=== PATIENT | female | born 1950 | race Caucasian/White ===

== ENCOUNTER 2023-01-05 13:43 | Outpatient (OUT) | payer MEDICARE, SELFPAY ==
--- NOTE | 2023-01-05 13:44 | CA_ITS ---
Patient: DAVID JACKSON Exam Date: 01/05/2023 : 1950 Gender:F Ordering : DR SABI CARRASCO M.D. Admission #: [id number] Family : DR EMILY BANKS M.D. Order #: [id number] CLICK HERE TO VIEW EXAM ECHOCARDIOGRAM REPORT PROCEDURE: CA ECHO DOPPLER COMPLETE INDICATIONS: Coronary artery disease COMPARISON: None. DESCRIPTION: COMPLETE ECHOCARDIOGRAM Real-time transthoracic echocardiography with 2D, M-mode, spectral and color flow Doppler performed. QUALITY: Technical quality was good. LEFT VENTRICLE: Normal chamber size. Normal left ventricular wall thickness. Normal systolic function. LV EF: Normal left ventricular ejection fraction, (55-60%). DIASTOLIC: Normal diastolic function. ATRIAL SEPTUM: LEFT ATRIUM: Normal chamber size. RIGHT ATRIUM: Normal chamber size. RIGHT VENTRICLE: Normal chamber size. Normal right ventricular systolic function. TRICUSPID VALVE: Normal mobility and thickness. No stenosis with mild regurgitation. Mildly elevated right sided pressures. RVSP is 36 mmHg based on estimated RA pressure of 8 mmHg. MITRAL VALVE: Normal mobility and thickness. No evidence of mitral valve stenosis. There is no mitral annular calcification. Trivial mitral regurgitation. AORTIC VALVE: Normal trileaflet appearance. Thickened aortic valve. Normal leaflet mobility. No evidence of aortic valve stenosis. Mild aortic regurgitation. AORTIC ROOT: Normal diameter and appearance. PULMONIC VALVE: Normal thickness and mobility. No stenosis. Trivial regurgitation. PERICARDIUM: No evidence of pericardial effusion. IVC: Not well visualized. PLEURA: CONCLUSION: 1. Normal ventricular function. LVEF is 55 to 60%. 2. No significant valvular dysfunction. 3. Mildly elevated right-sided pressures. 4. No pericardial effusion. Adult Echocardiography Procedure Report Left Ventricle LVEDD (3.7 - 5.6 cm): 4.33 cm LVESD (2.2 - 4.0 cm): 2.88 cm LVIVS thickness (0.6 - 1.2 cm): 0.95 cm LVPW thickness (0.5 - 1.0 cm): 0.88 cm e': 0.10 m/s E - e': 6.12 LVOT Max Gradient: 5.71 mm[Hg] LVOT Area (cm2): 1.19 m/s Peak Velocity (LVOT): 1.19 m/s LVOT Diameter 1.89 cm Left Atrium LA Volume Index (2D A2C): 30.27 ml/m2 Left Atrium Systolic Dimension: 3.84 cm Mitral Valve MV E to A Ratio: 1.05 Mitral Valve A-Wave Peak Velocity: 0.60 m/s Mitral Valve E-Wave Peak Velocity: 0.63 m/s Right Ventricle Aorta AO Root Diam: 2.75 cm Ascending Ao Diam: 2.79 cm Aortic Valve AoV Area (Peak Klaus): 2.17 cm2, 2.17 cm2 Peak Velocity(Antegrade Flow): 1.54 m/s Peak Gradient(Antegrade Flow): 9.46 mm[Hg] Tricuspid Valve Peak Velocity (Regurgitant Flow): 2.65 m/s, 2.48 m/s Pulmonic Valve Mean Gradient: 3.29 mm[Hg] Mean Velocity: 0.86 m/s Peak Velocity: 1.17 m/s, 1.11 m/s Peak Gradient: 4.89 mm[Hg], 5.47 mm[Hg] Right Atrium Right Atrium Systolic Pressure: 23.28 ml, 18.39 ml, 28.17 ml Dictated by: Sabi Carrasco M.D. on 01/05/2023 at 19:08 Approved by: Sabi Carrasco M.D. on 01/05/2023 at 19:12
== END 2023-01-05 13:44 | disposition home or self-care (01) ==
LOC: CARD 13:43
PROVIDERS: PCP Internal Medicine; Visit Provider Internal Medicine Interventional Cardiology
DX: I25.10 Atherosclerotic heart disease of native coronary artery without angina pectoris (principal); Z95.5 Presence of coronary angioplasty implant and graft
CPT/HCPCS: 93306

== ENCOUNTER 2023-11-06 15:06 | Outpatient (OUT) | payer MEDICARE, SELFPAY | END 2023-11-06 15:07 | disposition home or self-care (01) | LOC: PST 15:07 | PROVIDERS: PCP Internal Medicine; Visit Provider Surgery | DX: Z01.818 Encounter for other preprocedural examination (principal); Z12.11 Encounter for screening for malignant neoplasm of colon ==

== ENCOUNTER 2023-11-13 06:25 | Day surgery (SDC) | payer MEDICARE, SELFPAY ==
--- OUTSIDE RECORDS SUMMARY | 2023-11-13 06:28 | XMS_ITS | CCD ---
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 Name Role Phone RUBI, DR CELESTIN Admitting Unavailable RUBI, DR CELESTIN Attending Unavailable JOCELYN, DR DIAZ Primary Care Unavailable RUBI, DR CELESTIN Consulting Unavailable JOCELYN, DR DIAZ Admitting Unavailable JOCELYN, DR DIAZ Attending Unavailable JOCELYN, DR DIAZ Primary Care Unavailable JOCELYN, DR DIAZ Consulting Unavailable ZIОЛЬГА, DR HYUN Gill Consulting Unavailable SABI CARRASCO Attending Unavailable EMILY BANKS Attending Unavailable ALBA TAMAYO Attending Unavailable EMILY BANKS Referring Unavailable EMILY BANKS Attending Unavailable Problems Problem Classification Problem Date Documented Date Episodic/Chronic Coronary atherosclerosis and other heart disease (6 sources) Atherosclerotic heart disease of [place] coronary artery without angina pectoris; Translations: [ASHD [place] W/O ANGINA PECTORIS] Onset: 11-10-2021 Chronic Coronary atherosclerosis and other heart disease (2 sources) Presence of coronary angioplasty implant and graft; Translations: [Presence of coronary angioplasty implant and graft] Onset: 12-13-2022 Episodic Disorders of lipid metabolism (2 sources) Mixed hyperlipidemia; Translations: [Mixed hyperlipidemia] Onset: 12-13-2022 Chronic Menopausal disorders (4 sources) Other primary ovarian failure; Translations: [OTHER PRIMARY OVARIAN FAILURE] Onset: 03-09-2022 Chronic Other bone disease and musculoskeletal deformities (1 source) Other specified disorders of bone density and structure, unspecified site; Translations: [OTH D/O BONE DEN STRUCT UNS SITE] Onset: 03-12-2022 Episodic Results Test Name Value Interpretation Reference Range Facil ity Office Visiton 12-13-2022 Follow-up visit [id number] David Jackson 1950 F Date Provider Department Center 12/13/2022 [facility] CARRAS[facility] CARD [facility] Family History Family history unknown: Yes Level of Service:12803 [place] OFFICE/OUTPATIENT ESTABLISHED LOW MDM 20-29 MIN Reason for Visit and Comments: Coronary Artery Disease [187] Hyperlipidemia [182] Normal [facility] XR DEXA BONE DENSITYon 03-09 XR DEXA BONE DENSITY EXAMINATION: XR DEXA BONE DENSITY, 03/09/2022 10:09 AM EDT HISTORY: Primary ovarian failure COMPARISON: DEXA bone densitometry 01/23/2020 TECHNIQUE: Dual-energy X-ray absorptiometry (DEXA) bone density study performed for the axial skeleton. FINDINGS: SPINE ANALYSIS: Average bone mineral density is 1.020 g/cm2. T-score (standard deviation relative to young adult mean): -1.3 . -2.6% change since prior study. HIP ANALYSIS: Lowest bone mineral density is within the femoral neck, 0.9-0 g/cm2. T-score (standard deviation relative to young adult mean): -0.8 . -0.6% change since prior study. IMPRESSION: [employer] Classification: Osteopenia - Moderate Fracture Risk Electronically authenticated by: HYUN SUBRAMANIAN Date: 2022-03-09 10:50 Normal [facility] CBC AUTO DIFFon 11-10-2021 BASO # 0.0 103/ul Normal 0.0-0.1 [facility] Comment on above: Performed By: #### C BC #### [facility] [address] [place] [address] Dr. Kervin Rosenbaum Basophils/100 WBC (Bld) 0.5 % Normal 0.2-2.0 [facility] Comment on above: Performed By: #### C BC #### [facility] [address] [place] [address] Dr. Kervin Rosenbaum EO # 0.1 103/ul Normal 0.0-0.7 [facility] Comment on above: Performed By: #### C BC #### [facility] [address] [address] [address] Kervin Rosenbaum Eosinophils/100 WBC (Bld) 2.3 % Normal 0.9-7.0 [facility] Comment on above: Performed By: #### C BC #### [facility] [address] [place] [address] Dr. Kervin Rosenbaum Erythrocyte distribution width (RBC) [Ratio] 12.3 % Normal 11.0-15.0 [facility] Comment on above: Performed By: #### C BC #### [facility] [address] [place] [address] Dr. Kervin Rosenbaum Hematocrit (Bld) [Volume fraction] 36.5 % Normal 36.0-48.0 [facility] Comment on above: Performed By: #### C BC #### [facility] [address] [place] [address] Dr. Kervin Rosenbaum Hemoglobin (Bld) [Mass/Vol] 12.0 g/dL Normal 12.0-16.0 [facility] Comment on above: Performed By: #### C BC #### [facility] [address] [place] [address] Dr. Kervin Rosenbaum IG # 0.01 10e3/ul Normal 0.00-0.03 [facility] Comment on above: Performed By: #### C BC #### [facility] [address] [place] [address] Dr. Kervin Rosenbaum IG % 0.2 % Normal 0.0-0.5 [facility] Comment on above: Performed By: #### C BC #### [facility] [address] [place] [address] Dr. Kervin Rosenbaum LYMPH # 2.1 103/ul Normal 1.2-3.8 [facility] Comment on above: Performed By: #### C BC #### [facility] [address] [place] [address] Dr. Kervin Rosenbaum Lymphocytes/100 WBC (Bld) 34.7 % Normal 20.5-60.0 [facility] Comment on above: Performed By: #### C BC #### [facility] [address] [place] [address] Dr. Kervin Rosenbaum MANUAL DIFF REQ NO Normal [facility] Comment on above: Performed By: #### C BC #### [facility] [address] [place] [address] Dr. Kervin Rosenbaum MCH (RBC) [Entitic mass] 32.4 pg Normal 26.7-34.0 [facility] Comment on above: Performed By: #### C BC #### [facility] [address] [address] [address] Kervin Rosenbaum MCHC (RBC) [Mass/Vol] 32.9 g/dL Normal 29.9-35.2 [facility] Comment on above: Performed By: #### C BC #### [facility] [address] [address] [address] Kervin Rosenbaum MCV (RBC) [Entitic vol] 98.6 fL Normal 81.0-99.0 [facility] Comment on above: Performed By: #### C BC #### [facility] [address] [place] [address] Dr. Kervin Rosenbaum MONO # 0.6 103/ul Normal 0.3-0.8 [facility] Comment on above: Performed By: #### C BC #### [facility] [address] [place] [address] Dr. Kervin Rosenbaum Monocytes/100 WBC (Bld) 9.4 % Normal 1.7-12.0 [facility] Comment on above: Performed By: #### C BC #### [facility] [address] [place] [address] Dr. Kervin Rosenbaum NEUT # 3.2 103/ul Normal 1.4-6.5 [facility] Comment on above: Performed By: #### C BC #### [facility] [address] [place] [address] Dr. Kervin Rosenbaum Neutrophils/100 WBC (Bld) 52.9 % Normal 43.0-75.0 [facility] Comment on above: Performed By: #### C BC #### [facility] [address] [address] [address] Kervin Rosenbaum Platelet mean volume (Bld) [Entitic vol] 9.6 fL Normal 9.5-13.5 [facility] Comment on above: Performed By: #### C BC #### [facility] [address] [address] [address] Kervin Rosenbaum PLT 228 103/ul Normal 150-450 [facility] Comment on above: Performed By: #### C BC #### [facility] [address] [address] [address] Kervin Rosenbaum RBC 3.70 106/ul Critically low 4.20-5.40 [facility] Comment on above: Performed By: #### C BC #### [facility] [address] [address] [address] Kervin Rosenbaum WBC 6.0 103/ul Normal 4.0-11.0 [facility] Comment on above: Performed By: #### C BC #### [facility] [address] [address] [address] Kervin Rosenbaum LIPID PROFILEon 11-10-2021 CHOL-HDL RATIO NORM SEE BELOW Normal [facility] Comment on above: Result Comment: 3.3 - 4.4 LOW RISK 4.4 - 7.1 AVERAGE RISK 7.1 - 11.0 MODERATE RISK >11.0 HIGH RISK Performed By: #### L IPID, CMP #### [facility] [address] [place] [address] Dr. Kervin Rosenbaum Cholesterol [Mass/Vol] 138 mg/dL Normal <=200 [facility] Comment on above: Performed By: #### L IPID, CMP #### [facility] [address] [place] [address] Dr. Kervin Rosenbaum Cholesterol in HDL [Mass/Vol] 55 mg/dL Normal 40-60 [facility] Comment on above: Performed By: #### L IPID, CMP #### [facility] [address] [address] [address] Kervin Rosenbaum Cholesterol in LDL [Mass/Vol] 64.0 mg/dL Normal [facility] Comment on above: Performed By: #### L IPID, CMP #### [facility] [address] [place] [address] Dr. Kervin Rosenbaum Cholesterol.total/ Cholesterol in HDL [Mass ratio] 2.5 {ratio} Normal [facility] Comment on above: Performed By: #### L IPID, CMP #### [facility] [address] [place] [address] Dr. Kervin Rosenbaum HDL NORMAL > or = 60 mg/dl - LOW CARDIOVASCULAR RISK <40 mg/dl - HIGH CARDIOVASCULAR RISK Normal [facility] Comment on above: Performed By: #### L IPID, CMP #### [facility] [address] [address] [address] Kervin Rosenbaum LDL CALC NORMAL SEE BELOW Normal [facility] Comment on above: Result Comment: <100 mg/dl OPTIMAL 100 - 129 mg/dl NEAR OR ABOVE OPTIMAL 130 - 159 mg/dl BORDERLINE HIGH 160 - 189 mg/dl HIGH >190 mg/dl VERY HIGH Performed By: #### L IPID, CMP #### [facility] [address] [address] [address] Kervin Rosenbaum Triglyceride [Mass/Vol] 95 mg/dL Normal <=150 [facility] Comment on above: Performed By: #### L IPID, CMP #### [facility] [address] [address] [address] Kervin Rosenbaum VLDL CALC 19.0 mg/dL Normal [facility] Comment on above: Performed By: #### L IPID, CMP #### [facility] [address] [address] [address] Kervin Rosenbaum PROF 14(COMP METB)on 022 Albumin [Mass/Vol] 3.9 g/dL Normal 3.4-5.0 [facility] Comment on above: Performed By: #### L IPID, CMP #### [facility] [address] [address] [address] Kervin Rosenbaum Albumin/Globulin [Mass ratio] 1.3 {ratio} Normal [facility] Comment on above: Performed By: #### L IPID, CMP #### [facility] [address] [address] [address] Kervin Rosenbaum ALP [Catalytic activity/Vol] 94 U/L Normal 46-116 [facility] Comment on above: Performed By: #### L IPID, CMP #### [facility] [address] [address] [address] Kervin Rosenbaum ALT [Catalytic activity/Vol] 28 U/L Normal 14-59 [facility] Comment on above: Performed By: #### L IPID, CMP #### [facility] [address] [address] [address] Kervin Rosenbaum Anion gap [Moles/Vol] 9.6 mmol/L Normal [facility] Comment on above: Performed By: #### L IPID, CMP #### [facility] [address] [address] [address] Kervin Rosenbaum AST [Catalytic activity/Vol] 18 U/L Normal 15-37 [facility] Comment on above: Performed By: #### L IPID, CMP #### [facility] [address] [address] [address] Kervin Rosenbaum Bilirubin [Mass/Vol] 0.8 mg/dL Normal 0.2-1.0 [facility] Comment on above: Performed By: #### L IPID, CMP #### [facility] [address] [address] [address] Kervin Rosenbaum Calcium [Mass/Vol] 8.9 mg/dL Normal 8.5-10.1 [facility] Comment on above: Performed By: #### L IPID, CMP #### [facility] [address] [address] [address] Kervin Rosenbaum Chloride [Moles/Vol] 106 mmol/L Normal 98-107 [facility] Comment on above: Performed By: #### L IPID, CMP #### [facility] [address] [address] [address] Kervin Rosenbaum CO2 [Moles/Vol] 28.9 mmol/L Normal 21.0-32.0 [facility] Comment on above: Performed By: #### L IPID, CMP #### [facility] [address] [address] [address] Kervin Rosenbaum Creatinine [Mass/Vol] 0.83 mg/dL Normal 0.55-1.02 [facility] Comment on above: Performed By: #### L IPID, CMP #### [facility] [address] [address] [address] Kervin Rosenbaum EGFR-AF SLOVAK >60 Normal >=60 [facility] Comment on above: Performed By: #### L IPID, CMP #### [facility] [address] [address] [address] Kervin Rosenbaum EGFR-NON AF SLOVAK >60 Normal >=60 [facility] Comment on above: Performed By: #### L IPID, CMP #### [facility] [address] [address] [address] Kervin Rosenbaum Globulin (S) [Mass/Vol] 3.0 g/dL Normal [facility] Comment on above: Performed By: #### L IPID, CMP #### [facility] [address] [address] [address] Kervin Rosenbaum Glucose [Mass/Vol] 109 mg/dL Critically high 74-106 [facility] Comment on above: Performed By: #### L IPID, CMP #### [facility] [address] [address] [address] Kervin Rosenbaum Potassium [Moles/Vol] 4.5 mmol/L Normal 3.5-5.1 [facility] Comment on above: Performed By: #### L IPID, CMP #### [facility] [address] [address] [address] Kervin Rosenbaum Protein [Mass/Vol] 6.9 g/dL Normal 6.4-8.2 [facility] Comment on above: Performed By: #### L IPID, CMP #### [facility] [address] [address] [address] Kervin Rosenbaum Sodium [Moles/Vol] 140 mmol/L Normal 136-145 [facility] Comment on above: Performed By: #### L IPID, CMP #### [facility] [address] [address] [address] Kervin Rosenbaum Urea nitrogen [Mass/Vol] 21.0 mg/dL Critically high 7.0-18.0 [facility] Comment on above: Performed By: #### L IPID, CMP #### [facility] [address] [address] [address] Kervin Rosenbaum Urea nitrogen/Creatinin e [Mass ratio] 25.3 mg/mg Normal [facility] Comment on above: Performed By: #### L IPID, CMP #### [facility] [address] [address] [address] Kervin Rosenbaum Encounters Encounter Date Encounter Type Care Provider Facility Start: 10-31-2023 End: 10-31-2023 ambulatory EMILY BANKS Not Available Start: 10-29-2023 End: 10-29-2023 ambulatory ALBA TAMAYO Not Available Start: 10-22-2023 End: 10-22-2023 ambulatory EMILY BANKS Not Available Start: 12-13-2022 End: 12-13-2022 ambulatory SABI CENTERVILLEJORGE [facility] Start: 03-09-2022 End: 03-10-[address] EMILY BANKS Facility:[facility] Start: 11-10-2021 End: 11-11-[address] SABI CARRASCO Facility:[facility] Payers Date Payer Category Payer Private Health Insurance [id number] 1959 Medicare [id number] 1959 Private Health Insurance CLI [id number] 1950 Unknown [id number] [id number] [id number] 1950 Unknown [id number] [id number] [id number] 1950 Unknown [id number] [id number] [id number] 1950 Unknown [id number] 2.16.84 [id number] 1950 Unknown [id number] [id number] [id number] Progress note 12-13-2022 Note Date & Type Note Facility 12-13-2022 Note [facility] Olivier Jackson is a 72 y.o. year old female patient being seen for 1 year follow Coronary Artery Disease and Hyperlipidemia Patient Active Problem List Diagnosis Coronary artery disease involving tazlina coronary artery of t[place] heart without angina pectoris Mixed hyperlipidemia Status post insertion of drug eluting coronary artery stent Family History Family history unknown: Yes SARITA Olguin is seen in follow-up. She is a 72-year-old woman with prior medical history of: 1. Coronary artery disease status post stenting of the LAD and RCA in the past (2005) in the setting of symptoms and nonsustained ventricular tachycardia. A cardiac catheterization in 2009 in the setting of symptoms and abnormal stress test showed patent stents with a 40% proximal LAD stenosis. 2. Hyperlipidemia She is currently maintained on aspirin 81 mg daily, atorvastatin 40 mg daily, metoprolol succinate 50 mg daily. She has been doing well with no symptoms of angina or heart failure symptoms. No recurrence palpitations. No lower extremity edema. No claudication. She has good exercise tolerance. Review of Systems All other systems reviewed and are negative. Objective Visit Vitals BP 124/77 (BP Location: Left arm, Patient Position: Sitting, BP Cuff Size: Adult) Pulse 55 Wt 67.6 kg (149 lb) SpO2 99% BMI 25.58 kg/m??? BSA 1.75 m??? Physical Exam Constitutional: Appearance: She is well-developed. She is not ill-appearing. HENT: Head: Normocephalic and atraumatic. Nose: Nose normal. Eyes: General: No scleral icterus. Pupils: Pupils are equal, round, and reactive to light. Neck: Thyroid: No thyromegaly. Vascular: No JVD. Cardiovascular: Rate and Rhythm: Normal rate and regular rhythm. Pulses: Radial pulses are 2+ on the right side and 2+ on the left side. Heart sounds: Normal heart sounds. No murmur heard. No friction rub. No gallop. Pulmonary: Effort: Pulmonary effort is normal. No respiratory distress. Breath sounds: Normal breath sounds. No wheezing or rales. Chest: Chest wall: No tenderness. Abdominal: General: Bowel sounds are normal. There is no distension. Palpations: Abdomen is soft. Tenderness: There is no abdominal tenderness. Musculoskeletal: General: No swelling. Cervical back: Neck supple. Skin: General: Skin is warm and dry. Neurological: General: No focal deficit present. Mental Status: She is alert and oriented to person, place, and time. Psychiatric: Mood and Affect: Mood normal. Behavior: Behavior is cooperative. Judgment: Judgment normal. Allergies No Known Allergies Medications Current Outpatient Medications: aspirin 81 mg EC tablet, in the morning., Disp: , Rfl: atorvastatin (Lipitor) 40 mg tablet, Take 40 mg by mouth in the morning., Disp: , Rfl: metoprolol succinate XL (Toprol-XL) 50 mg 24 hr tablet, Take 1 tablet (50 mg) by mouth in the morning., Disp: 90 tablet, Rfl: 3 Recent Labs No visits with results within 6 Month(s) from this visit. Latest known visit with results is: No results found for any previous visit. Blood testing 11/10/2021: Hemoglobin 12, platelets 228, potassium 4.5, BUN 21, creatinine 0.83, EGFR more than 60, LFTs normal, cholesterol 138, HDL 55, triglycerides 95, LDL 64. Blood testing 12/06/2020: Hemoglobin 12.3, platelets 284, BUN 18, creatinine 0.8, potassium 4.9, LFTs normal. Cholesterol 139, triglycerides 87, HDL 46, LDL 76. Blood testing 11/20/2019: Cholesterol 129, HDL 56, triglycerides 68, LDL 59. LFTs normal. Blood testing 11/11/2018: Liver panel normal, cholesterol 137, triglycerides 111, HDL 47, LDL 68. Imaging and other tests Prior testing: ECG 09/21/2020: Normal sinus rhythm. Cardiac catheterization 04/14/2010: 1. Patent left anterior descending and right coronary artery stents. 2. 40% proximal left anterior descending coronary artery stenosis. 3. 55% ejection fraction. Assessment/Plan Diagnoses and all orders for this visit: Coronary artery disease involving tazl[place] coronary artery of t[place] heart without angina pectoris - Transthoracic echo (TTE) complete; Future Mixed hyperlipidemia Status post insertion of drug eluting coronary artery stent - Transthoracic echo (TTE) complete; Future Overall she is doing well with no angina and no heart failure symptoms. She has good exercise tolerance. Her blood pressure and heart rate are controlled. Her lipid profile 10/2021 showed adequate control on the current statin therapy. She previously had palpitations in August 2020, there is no recurrence. I will check an echocardiogram. I will see her in follow-up in 1 year. Follow up in about 1 year (around 12/14/2023). Sabi Carrasco MD [facility] Summary Purpose Family History No Family History Records FoundNo Family History Records FoundNo Family History Records Found Advance Directives No Advanced Directives Records FoundNo Advanced Directives Records FoundNo Advanced Directives Records Found Additional Source Comments INFORMATION SOURCE (unrecogn ized section and content) DATE CREATED AUTHOR 03/12/2022 [facility] DATE CREATED AUTHOR AUTHOR'S ORGANIZ ATION 12/14/2022 [facility] DATE CREATED AUTHOR AUTHOR'S ORGANIZ ATION 11/01/2023 [facility] EPIC FOR RECORDS PERTAINING TO PATIENTS WHO ARE OR HAVE BEEN ENROLLED IN A CHEMICAL DEPENDENCY/SUBSTANCEABUSE PROGRAM, SOME INFORMATION MAY BE OMITTED. This clinical summary was aggregated from multiple sources. Caution should be exercised in using it in the provision of clinical care. This summary normalizes information from multiple sources, and as a consequence, information in this document may materially change the coding, format and clinical context of patient data. In addition, data may be omitted in some cases. CLINICAL DECISIONS SHOULD BE BASED ON THE PRIMARY CLINICAL RECORDS. [facility]. provides no warranty or guarantee of the accuracy or completeness of information in this document.
[2023-11-13 06:34] VITALS: BP 135/68; PULSE 59; TEMP 36.1; O2SAT 100; BMI 25.6
[2023-11-13] MEDS: LACTATED RINGER'S SOLUTION 1,000 ML 50 ML IV (06:52)
[2023-11-13 07:55] VITALS: BP 141/65; PULSE 55; TEMP 36.3; O2SAT 98
[2023-11-13 08:10] VITALS: BP 130/58; PULSE 60; O2SAT 98
[2023-11-13 08:25] VITALS: BP 131/59; PULSE 62; O2SAT 98
--- NOTE | 2023-11-13 08:31 | W.PM.PROCNOT ---
Date of procedure: 11/13/23 Pre-op diagnosis: screening colonoscopy Post-op diagnosis: same as pre-op Procedure: Previous colonoscopy: procedure: screening colonoscopy The patient was given IV conscious sedation.? The patient's SPO2 remained above 90% throughout the procedure. The colonoscope was inserted per rectum and advanced under direct vision to the cecum without difficulty.? The prep was good.? Findings: Terminal ileum os: normal Cecum/Ascending colon: normal Transverse colon: normal Descending/Sigmoid colon: normal Rectum/Anus: examined in normal and retroflexed positions and was normal Withdrawal Time was (minutes): 8 The colon was decompressed and the scope was removed.? The patient tolerated the procedure well. Recommendations/Plan: 1.? Lifestyle and dietary modifications as discussed 2.? F/U in 10 years for repeat c-scope 3.? Discussed with the family Anesthesia: MAC Surgeon: Samson Huerta Estimated blood loss (mL): 0 Pathology: none sent Condition: stable Disposition: PACU
== END 2023-11-13 08:25 | disposition home or self-care (01) ==
PROVIDERS: PCP Internal Medicine; Visit Provider Surgery
PROC: (CPT G0121; principal; 2023-11-13 07:30)
DX: Z12.11 Encounter for screening for malignant neoplasm of colon (principal); Z79.82 Long term (current) use of aspirin; I25.10 Atherosclerotic heart disease of native coronary artery without angina pectoris; E78.5 Hyperlipidemia, unspecified; Z95.5 Presence of coronary angioplasty implant and graft; Z79.899 Other long term (current) drug therapy
CPT/HCPCS: G0121; J2704

== ENCOUNTER 2024-01-24 07:20 | Outpatient (OUT) | payer MEDICARE, SELFPAY ==
--- OUTSIDE RECORDS SUMMARY | 2024-01-24 07:24 | XMS_ITS | CCD ---
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 Name Role Phone RUBI, DR CELESTIN Admitting Unavailable RUBI, DR CELESTIN Attending Unavailable JOCELYN, DR DIAZ Primary Care Unavailable RUBI, DR CELESTIN Consulting Unavailable JOCELYN, DR DIAZ Admitting Unavailable JOCELYN, DR DIAZ Attending Unavailable JOCELYN, DR DIAZ Primary Care Unavailable JOCELYN, DR DIAZ Consulting Unavailable MORIS, DR HYUN Gill Consulting Unavailable EMILY BANKS Attending ALBA Jamison Attending Unavailable EMILY BANKS Referring Unavailable EMILY BANKS Attending Unavailable [facility] Attending Unavailable SABI VENEGAS Attending Unavailable Problems Problem Classification Problem Date Documented Date Episodic/Chronic Coronary atherosclerosis and other heart disease (6 sources) Atherosclerotic heart disease of [place] coronary artery without angina pectoris; Translations: [ASHD [place] W/O ANGINA PECTORIS] Onset: 11-10-2021 Chronic [...] Interpretation Reference Range Facil ity Office Visiton 01-18-2024 Follow-up visit [id number] David Jackson 1950 F Date Provider [facility] History Family history unknown: Yes Level of Service:21654 [place] OFFICE/OUTPATIENT ESTABLISHED LOW MDM 20 MIN Normal [facility] XR DEXA BONE DENSITYon 03-09 XR DEXA [...] HYUN SUBRAMANIAN Date: 2022-03-09 10:50 Normal [facility] CBC AUTO DIFFon 11-10-2021 BASO # 0.0 103/ul Normal 0.0-0.1 [facility] Comment on above: Performed By: #### C BC #### [facility] [address] [place] [address] Dr. Kervin Rosenbaum Basophils/100 WBC (Bld) 0.5 % Normal 0.2-2.0 [facility] Comment on above: Performed By: #### C BC #### [facility] [address] [place] [address] Dr. Kervin Rosenbaum EO # 0.1 103/ul Normal 0.0-0.7 [facility] Comment on above: Performed By: #### C BC #### [facility] [address] [place] [address] Dr. Kervin Rosenbaum Eosinophils/100 WBC (Bld) 2.3 % Normal 0.9-7.0 [facility] Comment on above: Performed By: #### C BC #### [facility] [address] [place] [address] Dr. Kervin Rosenbaum Erythrocyte distribution width (RBC) [Ratio] 12.3 % Normal 11.0-15.0 [facility] Comment on above: Performed By: #### C BC #### [facility] [address] [place] [address] Dr. Kervin Rosenbaum Hematocrit (Bld) [Volume fraction] 36.5 % Normal 36.0-48.0 [facility] Comment on above: Performed By: #### C BC #### [facility] [address] [place] [address] Dr. Kervin Rosenbaum Hemoglobin (Bld) [Mass/Vol] 12.0 g/dL Normal 12.0-16.0 [facility] Comment on above: Performed By: #### C BC #### [facility] [address] [place] [address] Dr. Kervin Rosenbaum IG # 0.01 10e3/ul Normal 0.00-0.03 [facility] Comment on above: Performed By: #### C BC #### [facility] [address] [place] [address] Dr. Kervin Rosenbaum IG % 0.2 % Normal 0.0-0.5 [facility] Comment on above: Performed By: #### C BC #### [facility] [address] [place] [address] Dr. Kervin Rosenbaum LYMPH # 2.1 103/ul Normal 1.2-3.8 [facility] Comment on above: Performed By: #### C BC #### [facility] [address] [place] [address] Dr. Kervin Rosenbaum Lymphocytes/100 WBC (Bld) 34.7 % Normal 20.5-60.0 [facility] Comment on above: Performed By: #### C BC #### [facility] [address] [place] [address] Dr. Kervin Rosenbaum MANUAL DIFF REQ NO Normal [facility] Comment on above: Performed By: #### C BC #### [facility] [address] [place] [address] Dr. Kervin Rosenbaum MCH (RBC) [Entitic mass] 32.4 pg Normal 26.7-34.0 [facility] Comment on above: Performed By: #### C BC #### [facility] [address] [address] [address] Kervin Rosenbaum MCHC (RBC) [Mass/Vol] 32.9 g/dL Normal 29.9-35.2 [facility] Comment on above: Performed By: #### C BC #### [facility] [address] [address] [address] Kervin Rosenbaum MCV (RBC) [Entitic vol] 98.6 fL Normal 81.0-99.0 [facility] Comment on above: Performed By: #### C BC #### [facility] [address] [place] [address] Dr. Kervin Rosenbaum MONO # 0.6 103/ul Normal 0.3-0.8 [facility] Comment on above: Performed By: #### C BC #### [facility] [address] [place] [address] Dr. Kervin Rosenbaum Monocytes/100 WBC (Bld) 9.4 % Normal 1.7-12.0 [facility] Comment on above: Performed By: #### C BC #### [facility] [address] [place] [address] Dr. Kervin Rosenbaum NEUT # 3.2 103/ul Normal 1.4-6.5 [facility] Comment on above: Performed By: #### C BC #### [facility] [address] [place] [address] Dr. Kervin Rosenbaum Neutrophils/100 WBC (Bld) 52.9 % Normal 43.0-75.0 [facility] Comment on above: Performed By: #### C BC #### [facility] [address] [place] [address] Dr. Kervin Rosenbaum Platelet mean volume (Bld) [Entitic vol] 9.6 fL Normal 9.5-13.5 [facility] Comment on above: Performed By: #### C BC #### [facility] [address] [place] [address] Dr. Kervin Rosenbaum PLT 228 103/ul Normal 150-450 [facility] Comment on above: Performed By: #### C BC #### [facility] [address] [address] [address] Kervin Rosenbaum RBC 3.70 106/ul Critically low 4.20-5.40 [facility] Comment on above: Performed By: #### C BC #### [facility] [address] [address] [address] Kervin Rosenbaum WBC 6.0 103/ul Normal 4.0-11.0 [facility] Comment on above: Performed By: #### C BC #### [facility] [address] [address] [address] Kervin Rosenbaum LIPID PROFILEon 11-10-2021 CHOL-HDL RATIO NORM SEE BELOW Normal [facility] Comment on above: Result Comment: 3.3 - 4.4 LOW RISK 4.4 - 7.1 AVERAGE RISK 7.1 - 11.0 MODERATE RISK >11.0 HIGH RISK Performed By: #### L IPID, CMP #### [facility] [address] [place] [address] Dr. Kervin Rosenbaum Cholesterol [Mass/Vol] 138 mg/dL Normal <=200 [facility] Comment on above: Performed By: #### L IPID, CMP #### [facility] [address] [place] [address] Dr. Kervin Rosenbaum Cholesterol in HDL [Mass/Vol] 55 mg/dL Normal 40-60 [facility] Comment on above: Performed By: #### L IPID, CMP #### [facility] [address] [address] [address] Kervin Rosenbaum Cholesterol in LDL [Mass/Vol] 64.0 mg/dL Normal [facility] Comment on above: Performed By: #### L IPID, CMP #### [facility] [address] [place] [address] Dr. Kervin Rosenbaum Cholesterol.total/ Cholesterol in HDL [Mass ratio] 2.5 {ratio} Normal [facility] Comment on above: Performed By: #### L IPID, CMP #### [facility] [address] [place] [address] Dr. Kervin Rosenbaum HDL NORMAL > or = 60 mg/dl - LOW CARDIOVASCULAR RISK <40 mg/dl - HIGH CARDIOVASCULAR RISK Normal [facility] Comment on above: Performed By: #### L IPID, CMP #### [facility] [address] [address] [address] Kervin Rosenbaum LDL CALC NORMAL SEE BELOW Normal [facility] Comment on above: Result Comment: <100 mg/dl OPTIMAL 100 - 129 mg/dl NEAR OR ABOVE OPTIMAL 130 - 159 mg/dl BORDERLINE HIGH 160 - 189 mg/dl HIGH >190 mg/dl VERY HIGH Performed By: #### L IPID, CMP #### [facility] [address] [address] [address] Kervin Rosenbaum Triglyceride [Mass/Vol] 95 mg/dL Normal <=150 [facility] Comment on above: Performed By: #### L IPID, CMP #### [facility] [address] [address] [address] Kervin Rosenbaum VLDL CALC 19.0 mg/dL Normal [facility] Comment on above: Performed By: #### L IPID, CMP #### [facility] [address] [address] [address] Kervin Rosenbaum PROF 14(COMP METB)on 022 Albumin [Mass/Vol] 3.9 g/dL Normal 3.4-5.0 [facility] Comment on above: Performed By: #### L IPID, CMP #### [facility] [address] [address] [address] Kervin Rosenbaum Albumin/Globulin [Mass ratio] 1.3 {ratio} Normal [facility] Comment on above: Performed By: #### L IPID, CMP #### [facility] [address] [address] [address] Kervin Rosenbaum ALP [Catalytic activity/Vol] 94 U/L Normal 46-116 [facility] Comment on above: Performed By: #### L IPID, CMP #### [facility] [address] [address] [address] Kervin Rosenbaum ALT [Catalytic activity/Vol] 28 U/L Normal 14-59 [facility] Comment on above: Performed By: #### L IPID, CMP #### [facility] [address] [address] [address] Kervin Rosenbaum Anion gap [Moles/Vol] 9.6 mmol/L Normal [facility] Comment on above: Performed By: #### L IPID, CMP #### [facility] [address] [address] [address] Kervin Rosenbaum AST [Catalytic activity/Vol] 18 U/L Normal 15-37 [facility] Comment on above: Performed By: #### L IPID, CMP #### [facility] [address] [address] [address] Kervin Rosenbaum Bilirubin [Mass/Vol] 0.8 mg/dL Normal 0.2-1.0 [facility] Comment on above: Performed By: #### L IPID, CMP #### [facility] [address] [place] [address] Dr. Kervin Rosenbaum Calcium [Mass/Vol] 8.9 mg/dL Normal 8.5-10.1 [facility] Comment on above: Performed By: #### L IPID, CMP #### [facility] [address] [address] [address] Kervin Rosenbaum Chloride [Moles/Vol] 106 mmol/L Normal 98-107 [facility] Comment on above: Performed By: #### L IPID, CMP #### [facility] [address] [address] [address] Kervin Rosenbaum CO2 [Moles/Vol] 28.9 mmol/L Normal 21.0-32.0 [facility] Comment on above: Performed By: #### L IPID, CMP #### [facility] [address] [address] [address] Kervin Rosenbaum Creatinine [Mass/Vol] 0.83 mg/dL Normal 0.55-1.02 [facility] Comment on above: Performed By: #### L IPID, CMP #### [facility] [address] [address] [address] Kervin Rosenbaum EGFR-AF LUXEMBOURGER >60 Normal >=60 [facility] Comment on above: Performed By: #### L IPID, CMP #### [facility] [address] [address] [address] Kervin Rosenbaum EGFR-NON AF LUXEMBOURGER >60 Normal >=60 [facility] Comment on above: Performed By: #### L IPID, CMP #### [facility] [address] [address] [address] Kervin Rosenbaum Globulin (S) [Mass/Vol] 3.0 g/dL Normal [facility] Comment on above: Performed By: #### L IPID, CMP #### [facility] [address] [address] [address] Kervin Rosenbaum Glucose [Mass/Vol] 109 mg/dL Critically high 74-106 [facility] Comment on above: Performed By: #### L IPID, CMP #### [facility] [address] [address] [address] Kervin Rosenbaum Potassium [Moles/Vol] 4.5 mmol/L Normal 3.5-5.1 [facility] Comment on above: Performed By: #### L IPID, CMP #### [facility] [address] [address] [address] Kervin Rosenbaum Protein [Mass/Vol] 6.9 g/dL Normal 6.4-8.2 [facility] Comment on above: Performed By: #### L IPID, CMP #### [facility] [address] [address] [address] Kervin Rosenbaum Sodium [Moles/Vol] 140 mmol/L Normal 136-145 [facility] Comment on above: Performed By: #### L IPID, CMP #### [facility] [address] [address] [address] Kervin Rosenbaum Urea nitrogen [Mass/Vol] 21.0 mg/dL Critically high 7.0-18.0 [facility] Comment on above: Performed By: #### L IPID, CMP #### [facility] [address] [address] [address] Kervin Rosenbaum Urea nitrogen/Creatinin e [Mass ratio] 25.3 mg/mg Normal [facility] Comment on above: Performed By: #### L IPID, CMP #### [facility] [address] [address] [address] Kervin Rosenbaum Encounters Encounter Date Encounter Type Care Provider Facility Start: 01-18-2024 ambulatory SABI VENEGAS [facility] Start: 12-10-2023 End: 12-10-2023 ambulatory [facility] Not Available Start: 10-31-2023 End: 10-31-2023 ambulatory EMILY BANKS Not Available Start: 10-29-2023 End: 10-29-2023 ambulatory ALBA TAMAYO Not Available Start: 10-22-2023 End: 10-22-2023 ambulatory EMILY BANKS Not Available Start: 03-09-2022 End: 03-10-[address] EMILY BANKS Facility:[facility] Start: 11-10-2021 End: 11-11-[address] SABI VENEGAS Facility:[facility] Payers Date Payer Category Payer Unknown [id number] 1959 Medicare [id number] 1959 Private Health Insurance CLI [id number] 1950 Unknown [id number] 2.16.84 [id number] 1950 Unknown [id number] 2.16.84 [id number] 1950 Unknown [id number] 2.16.84 [id number] 1950 Unknown [id number] 2.16.84 [id number] 1950 Unknown [id number] 2.16.84 [id number] 1950 Unknown [id number] 2.16.84 [id number] Progress note 01-18-2024 Note Date & Type Note Facility 01-18-2024 Note [facility] Subjective David J Les is a 73 y.o. year old female patient being seen for 1 year follow up CAD and hyperlipidemia. Had routine echo last December after apt. She had labs in October 2023, but no lipid panel. Denies chest pain, SOB, palpitations, and lightheadedness/syncope. Patient Active Problem List Diagnosis Coronary artery disease involving [place] coronary artery of [place] heart without angina pectoris Mixed hyperlipidemia Status post insertion of drug eluting coronary artery stent Cramps of lower extremity Decreased estrogen level Disorder of lipid metabolism Elevated ALT measurement Impaired fasting glucose Malaise and fatigue Pityriasis rosea Right sided sciatica Family History Family history unknown: Yes SARITA Olguin is seen in follow-up. She is a 73-year-old woman with prior medical history of: 1. [...] and are negative. Objective Visit Vitals BP 132/70 (BP Location: Left arm, Patient Position: Sitting) Pulse 53 Ht 1.626 m (5' 4 ) Wt 66.7 kg (147 lb) SpO2 99% BMI 25.23 kg/m??? BSA 1.74 m??? Physical Exam Constitutional: Appearance: She is [...] , Rfl: atorvastatin (Lipitor) 40 mg tablet, TAKE 1 TABLET BY MOUTH EVERY DAY, Disp: 90 tablet, Rfl: 3 metoprolol succinate XL (Toprol-XL) 50 mg 24 hr tablet, take 1 tablet by mouth every morning, Disp: 90 tablet, Rfl: 3 Recent Labs Blood testing 10/24/2023: Hb 11.8, platelets 277, BUN 20, Cr 0.68, K 4.8. Blood testing 11/10/2021: Hemoglobin 12, platelets 228, [...] 47, LDL 68. Imaging and other tests Echocardiogram 01/05/2023: Normal ventricular function. LVEF is 55 to 60%. No significant valvular dysfunction. Mildly elevated right-sided pressures. No pericardial effusion. Prior testing: ECG 09/21/2020: Normal sinus rhythm. Cardiac catheterization 04/14/2010: 1. Patent left anterior descending and right coronary artery stents. 2. 40% proximal left anterior descending coronary artery stenosis. 3. 55% ejection fraction. Assessment/Plan Diagnoses and all orders for this visit: Coronary artery disease involving [place] coronary artery of [place] heart without angina pectoris Mixed hyperlipidemia - Lipid panel; Future Status post insertion of drug eluting coronary artery stent Overall she is doing well with no angina and no heart failure symptoms. She has good exercise tolerance. Her blood pressure and heart rate are controlled. Her lipid profile 10/2021 showed adequate control on the current statin therapy. She previously had (more content not included)... [facility] Summary Purpose Family History No Family History Records FoundNo Family History Records FoundNo Family History Records Found Advance Directives No Advanced Directives Records FoundNo Advanced Directives Records FoundNo Advanced Directives Records Found Additional Source Comments INFORMATION SOURCE (unrecogn ized section and content) DATE CREATED AUTHOR 03/12/2022 [facility] DATE CREATED AUTHOR AUTHOR'S ORGANIZ ATION 12/10/2023 [facility] EPIC DATE CREATED AUTHOR AUTHOR'S ORGANIZ ATION 01/22/2024 [facility] FOR RECORDS PERTAINING TO PATIENTS WHO ARE [...] BE BASED ON THE PRIMARY CLINICAL RECORDS. [employer] provides no warranty or guarantee of the accuracy or completeness of information in this document.
[2024-01-24 09:20] LABS: Chol HDL Ratio 2.4; Cholesterol 131 mg/dL (<=200); HDL Cholesterol 54 mg/dL (40-60); Triglycerides 90 mg/dL (<=150)
== END 2024-01-24 07:21 | disposition home or self-care (01) ==
LOC: LAB 07:22
PROVIDERS: PCP Internal Medicine; Visit Provider Internal Medicine Interventional Cardiology
DX: E78.2 Mixed hyperlipidemia (principal)
CPT/HCPCS: 36415; 80061

== ENCOUNTER 2024-03-11 07:48 | Outpatient (OUT) | payer MEDICARE, SELFPAY ==
--- NOTE | 2024-03-11 07:53 | XR_ITS ---
[address] [address] Patient Name: DAVID JACKSON MRN: [id number] date: 1950 Sex: F Assigned Patient Location: [facility] Current Patient Location: [facility] Accession/Order Number: [id number] Exam Date: 03/11/2024 08:00 Report Date: 03/11/2024 12:47 At the request of: [facility] Procedure: XR DEXA axial skeleton EXAMINATION: XR DEXA axial skeleton HISTORY: Estrogen Deficiency E28.39 COMPARISON: DEXA bone densitometry 03/09/2022 TECHNIQUE: Dual-energy X-ray absorptiometry (DXA) was performed. FINDINGS: SPINE ANALYSIS: Average bone mineral density is 1.025 g/cm2. T-score (standard deviation relative to young adult mean): -1.3 . +0.5% change since prior study. HIP ANALYSIS: Lowest bone mineral density is within the right femoral neck, 0.904 g/cm2. T-score (standard deviation relative to young adult mean): -1.0 . +0.7% change since prior study. XR/XR DEXA axial skeleton IMPRESSION: World Health Organization Classification: Osteopenia - Moderate Fracture Risk FRAX: Cannot be calculated. Pharmacologic treatment recommendations * No uniform recommendation applies to all patients. Management plans must be individualized. * Consider initiating pharmacologic treatment in postmenopausal women and men >= 50 years of age who have the following: Primary fracture prevention: * T-score <= - 2.5 at the femoral neck, total hip, lumbar spine, 33% radius (some uncertainty with existing data) by DXA. * Low bone mass (osteopenia: T-score between - 1.0 and - 2.5) at the femoral neck or total hip by DXA with a 10-year hip fracture risk >= 3% or a 10-year major osteoporosis-related fracture risk >= 20% (i.e., clinical vertebral, hip, forearm, or proximal humerus) based on the [place]-adapted FRAXregistered model. Secondary fracture prevention: * Fracture of the hip or vertebra regardless of BMD [4, 5]. * Fracture of proximal humerus, pelvis, or distal forearm in persons with low bone mass (osteopenia: T-score between - 1.0 and - 2.5). The decision to treat should be individualized in persons with a fracture of the proximal humerus, pelvis, or distal forearm who do not have osteopenia or low BMD [12, 13]. Daisy MS, Emilee SL, Obdulia KL, Alexander EM, Yulissa KG, AJ, Romel ES. The clinician's guide to prevention and treatment of osteoporosis. Osteoporos Int. 2021;33(10):2048-2588. doi: 10.1007/l69853-220-85319-f. Epub 2021Oct 27. Erratum in: Osteoporos Int. 2021Jan 26;: PMID: [id number]; PMCID: [id number]. Electronically authenticated by: HYUN SUBRAMANIAN Date: 03/11/2024 12:47
--- OUTSIDE RECORDS SUMMARY | 2024-03-11 07:54 | XMS_ITS | CCD ---
Author Organization [facility] Care Team Providers Care Nuclear Criticality Safety Engineer Name Role Phone RUBI, DR CELESTIN Admitting [...] disease (6 sources) Atherosclerotic heart disease of [place] coronary artery without angina pectoris; Translations: [ASHD KAIBAB CA W/O ANGINA PECTORIS] Onset: 11-10-2021 Chronic [...] Facil ity Office Visiton 01-18-2024 Follow-up visit [id number] David Jackson 1950 F Date [facility] History Family history unknown: Yes Level of Service:83822 [place] OFFICE/OUTPATIENT ESTABLISHED LOW MDM 20 MIN Normal [facility] XR DEXA BONE DENSITYon 03-09 XR DEXA [...] HYUN SUBRAMANIAN Date: 2022-03-09 10:50 Normal [facility] CBC AUTO DIFFon 11-10-2021 BASO # 0.0 103/ul Normal 0.0-0.1 [facility] Comment on above: Performed By: #### C BC #### [facility] [address] [place] [address] Dr. Kervin Rosenbaum Basophils/100 WBC (Bld) 0.5 % Normal 0.2-2.0 [facility] Comment on above: Performed By: #### C BC #### [facility] [address] [place] [address] Dr. Kervin Rosenbaum EO # 0.1 103/ul Normal 0.0-0.7 [facility] Comment on above: Performed By: #### C BC #### [facility] [address] [place] [address] Dr. Kervin Rosenbaum Eosinophils/100 WBC (Bld) 2.3 % Normal 0.9-7.0 [facility] Comment on above: Performed By: #### C BC #### [facility] [address] [place] [address] Dr. Kervin Rosenbaum Erythrocyte distribution width (RBC) [Ratio] 12.3 % Normal 11.0-15.0 [facility] Comment on above: Performed By: #### C BC #### [facility] [address] [place] [address] Dr. Kervin Rosenbaum Hematocrit (Bld) [Volume fraction] 36.5 % Normal 36.0-48.0 [facility] Comment on above: Performed By: #### C BC #### [facility] [address] [place] [address] Dr. Kervin Rosenbaum Hemoglobin (Bld) [Mass/Vol] 12.0 g/dL Normal 12.0-16.0 [facility] Comment on above: Performed By: #### C BC #### [facility] [address] [place] [address] Dr. Kervin Rosenbaum IG # 0.01 10e3/ul Normal 0.00-0.03 [facility] Comment on above: Performed By: #### C BC #### [facility] [address] [place] [address] Dr. Kervin Rosenbaum IG % 0.2 % Normal 0.0-0.5 [facility] Comment on above: Performed By: #### C BC #### [facility] [address] [place] [address] Dr. Kervin Rosenbaum LYMPH # 2.1 103/ul Normal 1.2-3.8 [facility] Comment on above: Performed By: #### C BC #### [facility] [address] [place] [address] Dr. Kervin Rosenbaum Lymphocytes/100 WBC (Bld) 34.7 % Normal 20.5-60.0 [facility] Comment on above: Performed By: #### C BC #### [facility] [address] [place] [address] Dr. Kervin Rosenbaum MANUAL DIFF REQ NO Normal [facility] Comment on above: Performed By: #### C BC #### [facility] [address] [place] [address] Dr. Kervin Rosenbaum MCH (RBC) [Entitic mass] 32.4 pg Normal 26.7-34.0 [facility] Comment on above: Performed By: #### C BC #### [facility] [address] [address] [address] Kervin Rosenbaum MCHC (RBC) [Mass/Vol] 32.9 g/dL Normal 29.9-35.2 [facility] Comment on above: Performed By: #### C BC #### [facility] [address] [address] [address] Kervin Rosenbaum MCV (RBC) [Entitic vol] 98.6 fL Normal 81.0-99.0 [facility] Comment on above: Performed By: #### C BC #### [facility] [address] [place] [address] Dr. Kervin Rosenbaum MONO # 0.6 103/ul Normal 0.3-0.8 [facility] Comment on above: Performed By: #### C BC #### [facility] [address] [place] [address] Dr. Kervin Rosenbaum Monocytes/100 WBC (Bld) 9.4 % Normal 1.7-12.0 [facility] Comment on above: Performed By: #### C BC #### [facility] [address] [place] [address] Dr. Kervin Rosenbaum NEUT # 3.2 103/ul Normal 1.4-6.5 [facility] Comment on above: Performed By: #### C BC #### [facility] [address] [place] [address] Dr. Kervin Rosenbaum Neutrophils/100 WBC (Bld) 52.9 % Normal 43.0-75.0 [facility] Comment on above: Performed By: #### C BC #### [facility] [address] [place] [address] Dr. Kervin Rosenbaum Platelet mean volume (Bld) [Entitic vol] 9.6 fL Normal 9.5-13.5 [facility] Comment on above: Performed By: #### C BC #### [facility] [address] [place] [address] Dr. Kervin Rosenbaum PLT 228 103/ul Normal 150-450 [facility] Comment on above: Performed By: #### C BC #### [facility] [address] [address] [address] Kervin Rosenbaum RBC 3.70 106/ul Critically low 4.20-5.40 [facility] Comment on above: Performed By: #### C BC #### [facility] [address] [address] [address] Kervin Rosenbaum WBC 6.0 103/ul Normal 4.0-11.0 [facility] Comment on above: Performed By: #### C BC #### [facility] [address] [address] [address] Kervin Rosenbaum LIPID PROFILEon 11-10-2021 CHOL-HDL RATIO NORM SEE BELOW Normal [facility] Comment on above: Result Comment: 3.3 - 4.4 LOW RISK 4.4 - 7.1 AVERAGE RISK 7.1 - 11.0 MODERATE RISK >11.0 HIGH RISK Performed By: #### L IPID, CMP #### [facility] [address] [place] [address] Dr. Kervin Rosenbaum Cholesterol [Mass/Vol] 138 mg/dL Normal <=200 [facility] Comment on above: Performed By: #### L IPID, CMP #### [facility] [address] [place] [address] Dr. Kervin Rosenbaum Cholesterol in HDL [Mass/Vol] 55 mg/dL Normal 40-60 [facility] Comment on above: Performed By: #### L IPID, CMP #### [facility] [address] [address] [address] Kervin Rosenbaum Cholesterol in LDL [Mass/Vol] 64.0 mg/dL Normal [facility] Comment on above: Performed By: #### L IPID, CMP #### [facility] [address] [place] [address] Dr. Kervin Rosenbaum Cholesterol.total/ Cholesterol in HDL [Mass ratio] 2.5 {ratio} Normal [facility] Comment on above: Performed By: #### L IPID, CMP #### [facility] [address] [place] [address] Dr. Kervin Rosenbaum HDL NORMAL > or = 60 mg/dl - LOW CARDIOVASCULAR RISK <40 mg/dl - HIGH CARDIOVASCULAR RISK Normal [facility] Comment on above: Performed By: #### L IPID, CMP #### [facility] [address] [address] [address] Kervin Rosenbaum LDL CALC NORMAL SEE BELOW Normal [facility] Comment on above: Result Comment: <100 mg/dl OPTIMAL 100 - 129 mg/dl NEAR OR ABOVE OPTIMAL 130 - 159 mg/dl BORDERLINE HIGH 160 - 189 mg/dl HIGH >190 mg/dl VERY HIGH Performed By: #### L IPID, CMP #### [facility] [address] [address] [address] Kervin Rosenbaum Triglyceride [Mass/Vol] 95 mg/dL Normal <=150 [facility] Comment on above: Performed By: #### L IPID, CMP #### [facility] [address] [address] [address] Kervin Rosenbaum VLDL CALC 19.0 mg/dL Normal [facility] Comment on above: Performed By: #### L IPID, CMP #### [facility] [address] [address] [address] Kervin Rosenbaum PROF 14(COMP METB)on 022 Albumin [Mass/Vol] 3.9 g/dL Normal 3.4-5.0 [facility] Comment on above: Performed By: #### L IPID, CMP #### [facility] [address] [address] [address] Kervin Rosenbaum Albumin/Globulin [Mass ratio] 1.3 {ratio} Normal [facility] Comment on above: Performed By: #### L IPID, CMP #### [facility] [address] [address] [address] Kervin Rosenbaum ALP [Catalytic activity/Vol] 94 U/L Normal 46-116 [facility] Comment on above: Performed By: #### L IPID, CMP #### [facility] [address] [address] [address] Kervin Rosenbaum ALT [Catalytic activity/Vol] 28 U/L Normal 14-59 [facility] Comment on above: Performed By: #### L IPID, CMP #### [facility] [address] [address] [address] Kervin Rosenbaum Anion gap [Moles/Vol] 9.6 mmol/L Normal [facility] Comment on above: Performed By: #### L IPID, CMP #### [facility] [address] [address] [address] Kervin Rosenbaum AST [Catalytic activity/Vol] 18 U/L Normal 15-37 [facility] Comment on above: Performed By: #### L IPID, CMP #### [facility] [address] [address] [address] Kervin Rosenbaum Bilirubin [Mass/Vol] 0.8 mg/dL Normal 0.2-1.0 [facility] Comment on above: Performed By: #### L IPID, CMP #### [facility] [address] [place] [address] Dr. Kervin Rosenbaum Calcium [Mass/Vol] 8.9 mg/dL Normal 8.5-10.1 [facility] Comment on above: Performed By: #### L IPID, CMP #### [facility] [address] [address] [address] Kervin Rosenbaum Chloride [Moles/Vol] 106 mmol/L Normal 98-107 [facility] Comment on above: Performed By: #### L IPID, CMP #### [facility] [address] [address] [address] Kervin Rosenbaum CO2 [Moles/Vol] 28.9 mmol/L Normal 21.0-32.0 [facility] Comment on above: Performed By: #### L IPID, CMP #### [facility] [address] [address] [address] Kervin Rosenbaum Creatinine [Mass/Vol] 0.83 mg/dL Normal 0.55-1.02 [facility] Comment on above: Performed By: #### L IPID, CMP #### [facility] [address] [address] [address] Kervin Rosenbaum EGFR-AF MONTENEGRIN >60 Normal >=60 [facility] Comment on above: Performed By: #### L IPID, CMP #### [facility] [address] [address] [address] Kervin Rosenbaum EGFR-NON AF MONTENEGRIN >60 Normal >=60 [facility] Comment on above: Performed By: #### L IPID, CMP #### [facility] [address] [address] [address] Kervin Rosenbaum Globulin (S) [Mass/Vol] 3.0 g/dL Normal [facility] Comment on above: Performed By: #### L IPID, CMP #### [facility] [address] [address] [address] Kervin Rosenbaum Glucose [Mass/Vol] 109 mg/dL Critically high 74-106 [facility] Comment on above: Performed By: #### L IPID, CMP #### [facility] [address] [address] [address] Kervin Rosenbaum Potassium [Moles/Vol] 4.5 mmol/L Normal 3.5-5.1 [facility] Comment on above: Performed By: #### L IPID, CMP #### [facility] [address] [address] [address] Kervin Rosenbaum Protein [Mass/Vol] 6.9 g/dL Normal 6.4-8.2 [facility] Comment on above: Performed By: #### L IPID, CMP #### [facility] [address] [address] [address] Kervin Rosenbaum Sodium [Moles/Vol] 140 mmol/L Normal 136-145 [facility] Comment on above: Performed By: #### L IPID, CMP #### [facility] [address] [address] [address] Kervin Rosenbaum Urea nitrogen [Mass/Vol] 21.0 mg/dL Critically high 7.0-18.0 [facility] Comment on above: Performed By: #### L IPID, CMP #### [facility] [address] [address] [address] Kervin Rosenbaum Urea nitrogen/Creatinin e [Mass ratio] 25.3 mg/mg Normal [facility] Comment on above: Performed By: #### L IPID, CMP #### [facility] [address] [address] [address] Kervin Rosenbaum Encounters Encounter Date Encounter Type Care Provider Facility Start: 01-18-2024 ambulatory SABI VENEGAS [facility] Start: 12-10-2023 End: 12-10-2023 ambulatory [facility] Not Available Start: 10-31-2023 End: 10-31-2023 ambulatory EMILY BANKS Not Available Start: 10-29-2023 End: 10-29-2023 ambulatory [facility] TAMAYO Not Available Start: 10-22-2023 End: 10-22-2023 ambulatory EMILY BNAKS Not Available Start: 03-09-2022 End: 03-10-[address] EMILY BANKS Facility:[facility] Start: 11-10-2021 End: 11-11-[address] SABI VENEGAS Facility:[facility] Payers Date Payer Category Payer Unknown [id number] 1959 Medicare [id number] 1959 Private Health Insurance CLI [id number] 1950 Unknown [id number] 2.16.84 [id number] 1950 Unknown [id number] 2.16.84 [id number] 1950 Unknown [id number] 2.16.84 [id number] 1950 Unknown [id number] 2.16.84 [id number] 1950 Unknown [id number] 2.16.84 [id number] 1950 Unknown [id number] 2.16.84 [id number] Progress note 01-18-2024 Note Date & Type Note Facility 01-18-2024 Note [facility] Subjective David J Les is a 73 y.o. year old female patient being seen for 1 year follow up CAD and hyperlipidemia. Had routine echo last December after apt. She had labs in October 2023, but no lipid panel. Denies chest pain, SOB, palpitations, and lightheadedness/syncope. Patient Active Problem List Diagnosis Coronary artery disease involving [place] coronary artery of [place] heart without angina pectoris Mixed hyperlipidemia Status [...] for this visit: Coronary artery disease involving [place] coronary artery of [place] heart without angina pectoris Mixed hyperlipidemia - [...] She previously had (more content not included)... [facility] Summary Purpose Family History No Family History Records FoundNo Family History Records FoundNo Family History Records Found Advance Directives No Advanced Directives Records FoundNo Advanced Directives Records FoundNo Advanced Directives Records Found Additional Source Comments INFORMATION SOURCE (unrecogn ized section and content) DATE CREATED AUTHOR 03/12/2022 [facility] DATE CREATED AUTHOR AUTHOR'S ORGANIZ ATION 12/10/2023 [facility] EPIC DATE CREATED AUTHOR AUTHOR'S ORGANIZ ATION 01/22/2024 [facility] FOR RECORDS PERTAINING TO PATIENTS WHO ARE [...] BE BASED ON THE PRIMARY CLINICAL RECORDS. [facility] provides no warranty or guarantee of the accuracy or completeness of information in this document.
== END 2024-03-11 07:49 | disposition home or self-care (01) ==
LOC: RAD 07:48
PROVIDERS: PCP Internal Medicine; Visit Provider Physician Assistant
DX: E28.39 Other primary ovarian failure (principal); M85.80 Other specified disorders of bone density and structure, unspecified site
CPT/HCPCS: 77080

== ENCOUNTER 2024-12-27 06:29 | Outpatient (OUT) | payer MEDICARE, SELFPAY ==
--- OUTSIDE RECORDS SUMMARY | 2024-12-27 06:31 | XMS_ITS | CCD ---
Author Organization [facility] Care Team Providers Care Staff Counselor Name Role Phone RUBI, DR CELESTIN Admitting Unavailable RUBI, DR CELESTIN Attending Unavailable JOCELYN, DR DIAZ Primary Care Unavailable RUBI, DR CELESTIN Consulting Unavailable JOCELYN, DR DIAZ Admitting Unavailable JOCELYN, DR DIAZ Attending Unavailable JOCELYN, DR DIAZ Primary Care Unavailable JOCELYN, DR DIAZ Consulting Unavailable MORIS, DR HYUN Gill Consulting Unavailable EMILY BANKS Attending Unavailable ALBA TAMAYO Attending Unavailable EMILY BANKS Referring Unavailable EMILY BANKS Attending Unavailable [facility] Attending Unavailable EMILY BANKS Referring Unavailable EMILY BANKS Primary Care Unavailable SABI VENEGAS Attending Unavailable SABI VENEGAS Attending Unavailable Problems Problem Classification Problem Date Documented Date Episodic/Chronic Coronary atherosclerosis and other heart disease (6 sources) Atherosclerotic heart disease of [place] coronary artery without angina pectoris; Translations: [ASHD ENTERPRISE CA W/O ANGINA PECTORIS] Onset: 11-10-2021 Chronic Coronary atherosclerosis and other heart disease (2 sources) Presence of coronary angioplasty implant and graft; Translations: [Presence of coronary angioplasty implant and graft] Onset: 12-13-2022 Episodic Disorders of lipid metabolism (2 sources) Mixed hyperlipidemia; Translations: [Mixed hyperlipidemia] Onset: 12-13-2022 Chronic Essential hypertension (2 sources) Essential (primary) hypertension; Translations: [Essential (primary) hypertension] Onset: 12-10-2024 Chronic Menopausal disorders (4 sources) Other primary ovarian failure; Translations: [OTHER PRIMARY OVARIAN FAILURE] Onset: 03-09-2022 Chronic Other bone disease and musculoskeletal deformities (1 source) Other specified disorders of bone density and structure, unspecified site; Translations: [OTH D/O BONE DEN STRUCT UNS SITE] Onset: 03-12-2022 Episodic Other screening for suspected conditions (not mental disorders or infectious disease) (1 source) Encounter for screening mammogram for malignant neoplasm of breast; Translations: [Encounter for screening mammogram for malignant neoplasm of breast] Onset: 03-17-2024 Episodic Residual codes; unclassified (2 sources) Localized edema; Translations: [Localized edema] Onset: 12-10-2024 Episodic Results Test Name Value Interpretation Reference Range Facil ity Office Visiton 12-10-2024 Follow-up visit [id number] David Jackson 1950 Date Provider Department Center 12/10/2024 SABI POP ANETA Lainez Family History Problem Relation Age of Onset Stroke Mother Cancer Father Family Status - Relation Status Age at Mother Father Level of Service:50489 [place] OFFICE/OUTPATIENT ESTABLISHED MOD MDM 30 MIN Normal [facility] MAMM SCREENING BILATERAL W C 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 Computer aided detection was utilized. FINDINGS: There are scattered areas of fibroglandular density. There are no suspicious masses, calcifications, or areas of architectural distortion. IMPRESSION: No mammographic evidence of malignancy. BI-RADS: BI-RADS 1 - Negative Recommendation: Routine screening mammogram in 1 year. Finalized by Mark Anthony MD on 03/18/2024 9:31 AM 1 b MAMM 1 YR Normal [facility] Office Visiton 01-18-2024 Follow-up visit [id number] David Jackson 1950 Date Provider Department Center 01/18/2024 SABI POP ANETA Lainez Family History Family history unknown: Yes Level of Service:71170 [place] OFFICE/OUTPATIENT ESTABLISHED LOW MDM 20 MIN Normal [facility] XR DEXA BONE DENSITYon 03-09 XR DEXA [...] HYUN SUBRAMANIAN Date: 2022-03-09 10:50 Normal [facility] CBC AUTO DIFFon 11-10-2021 BASO # 0.0 103/ul Normal 0.0-0.1 [facility] Comment on above: Performed By: #### C BC #### [facility] [address] [place] [address] Dr. Kervin Rosenbaum Basophils/100 WBC (Bld) 0.5 % Normal 0.2-2.0 [facility] Comment on above: Performed By: #### C BC #### [facility] [address] [place] [address] Dr. Kervin Rosenbaum EO # 0.1 103/ul Normal 0.0-0.7 [facility] Comment on above: Performed By: #### C BC #### [facility] [address] [place] [address] Dr. Kervin Rosenbaum Eosinophils/100 WBC (Bld) 2.3 % Normal 0.9-7.0 [facility] Comment on above: Performed By: #### C BC #### [facility] [address] [place] [address] Dr. Kervin Rosenbaum Erythrocyte distribution width (RBC) [Ratio] 12.3 % Normal 11.0-15.0 [facility] Comment on above: Performed By: #### C BC #### [facility] [address] [place] [address] Dr. Kervin Rosenbaum Hematocrit (Bld) [Volume fraction] 36.5 % Normal 36.0-48.0 [facility] Comment on above: Performed By: #### C BC #### [facility] [address] [place] [address] Dr. Kervin Rosenbaum Hemoglobin (Bld) [Mass/Vol] 12.0 g/dL Normal 12.0-16.0 [facility] Comment on above: Performed By: #### C BC #### [facility] [address] [place] [address] Dr. Kervin Rosenbaum IG # 0.01 10e3/ul Normal 0.00-0.03 [facility] Comment on above: Performed By: #### C BC #### [facility] [address] [place] [address] Dr. Kervin Rosenbaum IG % 0.2 % Normal 0.0-0.5 [facility] Comment on above: Performed By: #### C BC #### [facility] [address] [place] [address] Dr. Kervin Rosenbaum LYMPH # 2.1 103/ul Normal 1.2-3.8 [facility] Comment on above: Performed By: #### C BC #### [facility] [address] [place] [address] Dr. Kervin Rosenbaum Lymphocytes/100 WBC (Bld) 34.7 % Normal 20.5-60.0 [facility] Comment on above: Performed By: #### C BC #### [facility] [address] [place] [address] Dr. Kervin Rosenbaum MANUAL DIFF REQ NO Normal [facility] Comment on above: Performed By: #### C BC #### [facility] [address] [place] [address] Dr. Kervin Rosenbaum MCH (RBC) [Entitic mass] 32.4 pg Normal 26.7-34.0 [facility] Comment on above: Performed By: #### C BC #### [facility] [address] [place] [address] Dr. Kervin Rosenbaum MCHC (RBC) [Mass/Vol] 32.9 g/dL Normal 29.9-35.2 [facility] Comment on above: Performed By: #### C BC #### [facility] [address] [address] [address] Kervin Rosenbaum MCV (RBC) [Entitic vol] 98.6 fL Normal 81.0-99.0 [facility] Comment on above: Performed By: #### C BC #### [facility] [address] [address] [address] Kervin Rosenbaum MONO # 0.6 103/ul Normal 0.3-0.8 [facility] Comment on above: Performed By: #### C BC #### [facility] [address] [place] [address] Dr. Kervin Rosenbaum Monocytes/100 WBC (Bld) 9.4 % Normal 1.7-12.0 [facility] Comment on above: Performed By: #### C BC #### [facility] [address] [place] [address] Dr. Kervin Rosenbaum NEUT # 3.2 103/ul Normal 1.4-6.5 [facility] Comment on above: Performed By: #### C BC #### [facility] [address] [place] [address] Dr. Kervin Rosenbaum Neutrophils/100 WBC (Bld) 52.9 % Normal 43.0-75.0 [facility] Comment on above: Performed By: #### C BC #### [facility] [address] [address] [address] Kervin Rosenbaum Platelet mean volume (Bld) [Entitic vol] 9.6 fL Normal 9.5-13.5 [facility] Comment on above: Performed By: #### C BC #### [facility] [address] [address] [address] Kervin Rosenbaum PLT 228 103/ul Normal 150-450 [facility] Comment on above: Performed By: #### C BC #### [facility] [address] [place] [address] Dr. Kervin Rosenbaum RBC 3.70 106/ul Critically low 4.20-5.40 [facility] Comment on above: Performed By: #### C BC #### [facility] [address] [address] [address] Kervin Rosenbaum WBC 6.0 103/ul Normal 4.0-11.0 [facility] Comment on above: Performed By: #### C BC #### [facility] [address] [address] [address] Kervin Rosenbaum LIPID PROFILEon 11-10-2021 CHOL-HDL RATIO NORM SEE BELOW Normal [facility] Comment on above: Result Comment: 3.3 - 4.4 LOW RISK 4.4 - 7.1 AVERAGE RISK 7.1 - 11.0 MODERATE RISK >11.0 HIGH RISK Performed By: #### L IPID, CMP #### [facility] [address] [address] [address] Kervin Rosenbaum Cholesterol [Mass/Vol] 138 mg/dL Normal <=200 [facility] Comment on above: Performed By: #### L IPID, CMP #### [facility] [address] [address] [address] Kervin Rosenbaum Cholesterol in HDL [Mass/Vol] 55 mg/dL Normal 40-60 [facility] Comment on above: Performed By: #### L IPID, CMP #### [facility] [address] [place] [address] Dr. Kervin Rosenbaum Cholesterol in LDL [Mass/Vol] 64.0 mg/dL Normal [facility] Comment on above: Performed By: #### L IPID, CMP #### [facility] [address] [address] [address] Kervin Rosenbaum Cholesterol.total/ Cholesterol in HDL [Mass ratio] 2.5 {ratio} Normal [facility] Comment on above: Performed By: #### L IPID, CMP #### [facility] [address] [place] [address] Dr. Kervin Rosenbaum HDL NORMAL > or = 60 mg/dl - LOW CARDIOVASCULAR RISK <40 mg/dl - HIGH CARDIOVASCULAR RISK Normal [facility] Comment on above: Performed By: #### L IPID, CMP #### [facility] [address] [place] [address] Dr. Kervin Rosenbaum LDL CALC NORMAL SEE BELOW Normal [facility] Comment on above: Result Comment: <100 mg/dl OPTIMAL 100 - 129 mg/dl NEAR OR ABOVE OPTIMAL 130 - 159 mg/dl BORDERLINE HIGH 160 - 189 mg/dl HIGH >190 mg/dl VERY HIGH Performed By: #### L IPID, CMP #### [facility] [address] [address] [address] Kervin Rosenbaum Triglyceride [Mass/Vol] 95 mg/dL Normal <=150 [facility] Comment on above: Performed By: #### L IPID, CMP #### [facility] [address] [address] [address] Kervin Rosenbaum VLDL CALC 19.0 mg/dL Normal [facility] Comment on above: Performed By: #### L IPID, CMP #### [facility] [address] [place] [address] Dr. Kervin Rosenbaum PROF 14(COMP METB)on 022 Albumin [Mass/Vol] 3.9 g/dL Normal 3.4-5.0 [facility] Comment on above: Performed By: #### L IPID, CMP #### [facility] [address] [address] [address] Kervin Rosenbaum Albumin/Globulin [Mass ratio] 1.3 {ratio} Normal [facility] Comment on above: Performed By: #### L IPID, CMP #### [facility] [address] [address] [address] Kervin Rosenbaum ALP [Catalytic activity/Vol] 94 U/L Normal 46-116 [facility] Comment on above: Performed By: #### L IPID, CMP #### [facility] [address] [address] [address] Kervin Rosenbaum ALT [Catalytic activity/Vol] 28 U/L Normal 14-59 [facility] Comment on above: Performed By: #### L IPID, CMP #### [facility] [address] [address] [address] Kervin Rosenbaum Anion gap [Moles/Vol] 9.6 mmol/L Normal [facility] Comment on above: Performed By: #### L IPID, CMP #### [facility] [address] [address] [address] Kervin Rosenbaum AST [Catalytic activity/Vol] 18 U/L Normal 15-37 [facility] Comment on above: Performed By: #### L IPID, CMP #### [facility] [address] [place] [address] Dr. Kervin Rosenbaum Bilirubin [Mass/Vol] 0.8 mg/dL Normal 0.2-1.0 [facility] Comment on above: Performed By: #### L IPID, CMP #### [facility] [address] [place] [address] Dr. Kervin Rosenbaum Calcium [Mass/Vol] 8.9 mg/dL Normal 8.5-10.1 [facility] Comment on above: Performed By: #### L IPID, CMP #### [facility] [address] [place] [address] Dr. Kervin Rosenbaum Chloride [Moles/Vol] 106 mmol/L Normal 98-107 [facility] Comment on above: Performed By: #### L IPID, CMP #### [facility] [address] [place] [address] Dr. Kervin Rosenbaum CO2 [Moles/Vol] 28.9 mmol/L Normal 21.0-32.0 [facility] Comment on above: Performed By: #### L IPID, CMP #### [facility] [address] [place] [address] Dr. Kervin Rosenbaum Creatinine [Mass/Vol] 0.83 mg/dL Normal 0.55-1.02 [facility] Comment on above: Performed By: #### L IPID, CMP #### [facility] [address] [place] [address] Dr. Kervin Rosenbaum EGFR-AF SAUDI ARABIAN >60 Normal >=60 [facility] Comment on above: Performed By: #### L IPID, CMP #### [facility] [address] [place] [address] Dr. Kervin Rosenbaum EGFR-NON AF SAUDI ARABIAN >60 Normal >=60 [facility] Comment on above: Performed By: #### L IPID, CMP #### [facility] [address] [address] [address] Kervin Rosenbaum Globulin (S) [Mass/Vol] 3.0 g/dL Normal [facility] Comment on above: Performed By: #### L IPID, CMP #### [facility] [address] [address] [address] Kervin Rosenbaum Glucose [Mass/Vol] 109 mg/dL Critically high 74-106 [facility] Comment on above: Performed By: #### L IPID, CMP #### [facility] [address] [address] [address] Kervin Rosenbaum Potassium [Moles/Vol] 4.5 mmol/L Normal 3.5-5.1 [facility] Comment on above: Performed By: #### L IPID, CMP #### [facility] [address] [place] [address] Dr. Kervin Rosenbaum Protein [Mass/Vol] 6.9 g/dL Normal 6.4-8.2 [facility] Comment on above: Performed By: #### L IPID, CMP #### [facility] [address] [place] [address] Dr. Kervin Rosenbaum Sodium [Moles/Vol] 140 mmol/L Normal 136-145 [facility] Comment on above: Performed By: #### L IPID, CMP #### [facility] [address] [place] [address] Dr. Kervin Rosenbaum Urea nitrogen [Mass/Vol] 21.0 mg/dL Critically high 7.0-18.0 [facility] Comment on above: Performed By: #### L IPID, CMP #### [facility] [address] [place] [address] Dr. Kervin Rosenbaum Urea nitrogen/Creatinin e [Mass ratio] 25.3 mg/mg Normal [facility] Comment on above: Performed By: #### L IPID, CMP #### [facility] [address] [place] [address] Dr. Kervin Rosenbaum Encounters Encounter Date Encounter Type Care Provider Facility Start: 12-10-2024 End: 12-10-2024 ambulatory SABI [facility] Start: 03-17-2024 End: 03-17-2024 ambulatory EMILY BANKS [facility] Start: 01-18-2024 [facility] Start: 12-10-2023 End: 12-10-2023 ambulatory [facility] Not Available Start: 10-31-2023 End: 10-31-2023 ambulatory EMILY BANKS Not Available Start: 10-29-2023 End: 10-29-2023 ambulatory ALBA BELKIS Not Available Start: 10-22-2023 End: 10-22-2023 ambulatory EMILY BANKS Not Available Start: 03-09-2022 End: 03-10-[address] EMILY BANKS Facility:[facility] Start: 11-10-2021 End: 11-11-[address] SABI VENEGAS Facility:[facility] Payers Date Payer Category Payer Unknown [id number] 1959 Medicare [id number] 1959 Private Health Insurance CLI [id number] 1950 Unknown [id number] 2.16.84 [id number] 1950 Unknown [id number] 2.16.84 [id number] 1950 Unknown [id number] 2.16.84 [id number] 1950 Unknown [id number] 2.16.84 [id number] 1950 Unknown [id number] 2.16.84 [id number] 1950 Unknown [id number] 2.16.84 [id number] 1950 Unknown [id number] 2.16.8 [id number] Progress note 12-10-2024 Note Date & Type Note Facility 12-10-2024 Note [place] [facility] Subjective David Jackson is a 74 y.o. year old female patient being seen for 1 year follow up. Patient denies any cardiac symptoms at this time Patient Active Problem List Diagnosis Coronary artery disease involving [place] coronary artery of [place] heart without angina pectoris Mixed hyperlipidemia Status post insertion of drug eluting coronary artery stent Cramps of lower extremity Decreased estrogen level Disorder of lipid metabolism Elevated ALT measurement Impaired fasting glucose Malaise and fatigue Pityriasis rosea Right sided sciatica Family History Problem Relation Name Age of Onset Stroke Mother Cancer Father Social History Tobacco Use Smoking status: Never Smokeless tobacco: Never Substance Use Topics Alcohol use: Yes Comment: occasional Drug use: Never HPI David is seen in follow-up. She is a 74-year-old woman with prior medical history of: 1. Coronary artery disease status post stenting of the LAD and RCA in the past (2005) in the setting of symptoms and nonsustained ventricular tachycardia. A cardiac catheterization in 2009 in the setting of symptoms and abnormal stress test showed patent stents with a 40% proximal LAD stenosis. 2. Hyperlipidemia. She is currently maintained on aspirin 81 mg daily, atorvastatin 40 mg daily, metoprolol succinate 50 mg daily. She takes furosemide 20 mg as needed for leg swelling. She has been doing well with no symptoms of angina or heart failure symptoms. No recurrence palpitations. She has mild ankle edema. No claudication. Her blood pressure is elevated. She is worried about that. She has not had any blood testing recently. Review of Systems Constitutional: Negative. All other systems reviewed and are negative. Objective Visit Vitals BP 148/69 (BP Location: Right arm, Patient Position: Sitting) Pulse 51 Ht 1.626 m (5' 4 ) Wt 66.2 kg (146 lb) SpO2 96% BMI 25.06 kg/m??? Smoking Status Never BSA 1.73 m??? Physical Exam Constitutional: Appearance: She is [...] EVERY DAY, Disp: 90 tablet, Rfl: 3 furosemide (Lasix) 20 mg tablet, Take 20 mg by mouth in the morning. As needed (Patient taking differently: Take 20 mg by mouth in the morning. As needed for swelling), Disp: , Rfl: metoprolol succinate XL (Toprol-XL) 50 mg 24 hr tablet, Take 1 tablet (50 mg) by mouth in the morning., Disp: 90 tablet, Rfl: 3 losartan (Cozaar) 50 mg tablet, Take 1 tablet (50 mg) by mouth in the morning., Disp: 90 tablet, Rfl: 3 Recent Labs Lipids 01/24/2024: Triglycerides 90, cholesterol 131, HDL 54, LDL 59. Blood testing 10/24/2023: Hb 11.8, platelets 277, [...] anterior descending and right coronary artery stents. (more content not included)... [facility] Progress note 01-18-2024 Note Date & Type Note Facility 01-18-2024 Note [place] [facility] Subjective David Jackson is a 73 y.o. year old female patient being seen for 1 year follow up CAD and hyperlipidemia. Had routine echo last December after apt. She had labs in October 2023, but no lipid panel. Denies chest pain, SOB, palpitations, and lightheadedness/syncope. Patient Active Problem List Diagnosis Coronary artery disease involving [place] coronary artery of [place]e heart without angina pectoris Mixed hyperlipidemia Status [...] for this visit: Coronary artery disease involving [place] coronary artery of [place] heart without angina pectoris Mixed hyperlipidemia - [...] She previously had (more content not included)... [facility] Summary Purpose Family History No Family History Records FoundNo Family History Records FoundNo Family History Records FoundNo Family History Records Found Advance Directives No Advanced Directives Records FoundNo Advanced Directives Records FoundNo Advanced Directives Records FoundNo Advanced Directives Records Found Additional Source Comments INFORMATION SOURCE (unrecogn ized section and content) DATE CREATED AUTHOR 03/12/2022 [facility] DATE CREATED AUTHOR AUTHOR'S ORGANIZ ATION 12/10/2023 [facility] DATE CREATED AUTHOR AUTHOR'S ORGANIZ ATION 03/20/2024 [facility] DATE CREATED AUTHOR AUTHOR'S ORGANIZ ATION 12/12/2024 [facility] FOR RECORDS PERTAINING TO PATIENTS [...] BE BASED ON THE PRIMARY CLINICAL RECORDS. [employer] provides no warranty or guarantee of the accuracy or completeness of information in this document.
[2024-12-27 06:47] LABS: Basophils Percent Auto 0.6 % (0.2-2.0); Eosinophils Absolute Auto 0.2 10^3/uL (0.0-0.7); Hematocrit 33.9 % (36.0-48.0); Immature Granulocytes Abs Auto 0.01 10^3/uL (0.00-0.03); Immature Granulocytes Pct Auto 0.2 % (0.0-0.5); Lymphocytes Absolute Auto 2.5 10^3/uL (1.2-3.8); Lymphocytes Percent Auto 38.9 % (20.5-60.0); Mean Corpuscular HGB Conc 32.4 g/dL (29.9-35.2); Mean Corpuscular Hemoglobin 32.3 pg (26.7-34.0); Mean Corpuscular Volume 99.4 fL (81.0-99.0); Mean Platelet Volume 10.3 fL (9.5-13.5); Monocytes Absolute Auto 0.5 10^3/uL (0.3-0.8); Monocytes Percent Auto 8.4 % (1.7-12.0); Neutrophils Absolute Auto 3.1 10^3/uL (1.4-6.5); Neutrophils Percent Auto 48.9 % (43.0-75.0); Platelet Count 241 10^3/uL (150-450); Red Blood Count 3.41 10^6/uL (4.20-5.40); White Blood Count 6.3 10^3/uL (4.0-11.0)
[2024-12-27 07:29] LABS: Alanine Aminotransferase 35 U/L (14-59); Albumin Globulin Ratio 1.3; Albumin Level 3.7 g/dL (3.4-5.0); Alkaline Phosphatase 99 U/L (46-116); Anion Gap 11.6; Aspartate Amino Transferase 19 U/L (15-37); BUN Creatinine Ratio 23.3; Bilirubin Total 0.5 mg/dL (0.2-1.0); Calcium 8.6 mg/dL (8.5-10.1); Carbon Dioxide 29.5 mmol/L (21.0-32.0); Chloride 111 mmol/L (98-107); Chol HDL Ratio 2.2; Cholesterol 118 mg/dL (<=200); Estimated GFR (African America >60 (>=60 mL/min/1.73m^2); Estimated GFR (Non-African Ame >60 (>=60 mL/min/1.73m^2); Globulin 2.9 g/dL; Glucose 110 mg/dL (74-106); HDL Cholesterol 54 mg/dL (40-60); LDL Cholesterol Calculated 47.8 mg/dL; Potassium 4.1 mmol/L (3.5-5.1); Sodium 148 mmol/L (136-145); Total Protein 6.6 g/dL (6.4-8.2); Triglycerides 81 mg/dL (<=150); VLDL CHOLESTEROL 16.2 mg/dL
== END 2024-12-27 06:30 | disposition home or self-care (01) ==
LOC: LAB 06:29
PROVIDERS: PCP Internal Medicine; Visit Provider Internal Medicine Interventional Cardiology
DX: E78.2 Mixed hyperlipidemia (principal); I25.10 Atherosclerotic heart disease of native coronary artery without angina pectoris; I10 Essential (primary) hypertension
CPT/HCPCS: 36415; 80053; 80061; 85025